=== PATIENT | female | born 1935 | race Hispanic/Latino ===

== ENCOUNTER 2016-10-20 13:49 | Emergency (ER) | payer MEDICARE ==
[2016-10-20 13:49] VITALS: BMI 27.2
[2016-10-20 14:19] VITALS: BP 136/67; PULSE 84; RESP 16; TEMP 97.9; O2SAT 100
[2016-10-20] MEDS ORDERED: Sodium Chloride 0.9% 1,000 ML IV STA (14:49)
--- NOTE | 2016-10-20 15:42 | ED PDOC ---
HPI: Abdomen Time Seen by Provider: 10/20/16 14:43 Chief Complaint (Nursing): Dizziness/Lightheaded Chief Complaint (Provider): Dizziness/Lightheaded History Per: Patient History/Exam Limitations: no limitations Onset/Duration Of Symptoms: Days Current Symptoms Are (Timing): Still Present Severity: Mild Location Of Pain/Discomfort: RUQ Quality Of Discomfort: "Pain" Associated Symptoms: Nausea. denies: Fever, Vomiting Exacerbating Factors: None Alleviating Factors: None Additional Complaint(s): Patient is a 80 year old female who presents to ED for evaluation of dizziness and RUQ pain for 3 days. Patient notes dizziness is described as a lightheaded feelings, denies headache, neck pain or ear pain. Patient notes abdominal pain is associated with nausea, with similar pain in the past, no known diagnosis. Denies chest pain, SOB, vomiting, diarrhea or back pain. Past Medical History Reviewed: Historical Data, Nursing Documentation, Vital Signs Vital Signs: Last Vital Signs Temp 97.9 F 10/20/16 14:16 Pulse 84 10/20/16 14:16 Resp 16 10/20/16 14:16 BP 136/67 10/20/16 14:16 Pulse Ox 100 10/20/16 15:51 - Medical History PMH: Arthritis, Depression, Diabetes, Gastritis, HTN, Hypercholesterolemia Denies: Chronic Kidney Disease - Surgical History Surgical History: No Surg Hx - Family History Family History: States: Hypertension - Living Arrangements Living Arrangements: With Family - Home Medications Home Medications: Ambulatory Orders Medication Instructions Recorded Atorvastatin [Lipitor] 20 mg PO DAILY 10/20/16 Ergocalciferol (Vitamin D2) 50,000 unit PO TH 10/20/16 [Vitamin D2] Folic Acid [Folic Acid] 1 mg PO DAILY 10/20/16 [id number] Ethyl Esters 1 GM 2 gm PO BID 10/20/16 [Lovaza] Ondansetron [Zofran] 4 mg PO Q8H #12 tab 10/20/16 Pantoprazole Sodium [Protonix] 40 mg PO DAILY 10/20/16 Pioglitazone [Actos] 30 mg PO DAILY 10/20/16 amLODIPine [Norvasc] 5 mg PO DAILY 10/20/16 buPROPion XL [Wellbutrin XL] 300 mg PO DAILY 10/20/16 busPIRone [Buspar] 5 mg PO BID 10/20/16 traZODone [Desyrel] 50 mg PO HS 10/20/16 - Allergies Allergies/Adverse Reactions: Allergies Allergy/AdvReac Type Severity Reaction Status Date / Time No Known Allergies Allergy Verified 10/20/16 14:16 Review of Systems ROS Statement: Except As Marked, All Systems Reviewed And Found Negative Constitutional: Negative for: Fever, Chills, Weakness Eyes: Negative for: Vision Change ENT: Negative for: Ear Pain Cardiovascular: Negative for: Chest Pain, Palpitations Respiratory: Negative for: Shortness of Breath Gastrointestinal: Positive for: Nausea, Abdominal Pain. Negative for: Vomiting Musculoskeletal: Negative for: Neck Pain, Back Pain Neurological: Positive for: Dizziness. Negative for: Weakness, Numbness, Headache Physical Exam - Reviewed Nursing Documentation Reviewed: Yes Vital Signs Reviewed: Yes - Physical Exam Appears: Positive for: Non-toxic, No Acute Distress Skin: Positive for: Normal Color, Warm Eye Exam: Positive for: Normal appearance Neck: Positive for: Normal, Painless ROM Cardiovascular/Chest: Positive for: Regular Rate, Rhythm. Negative for: Murmur Respiratory: Positive for: Normal Breath Sounds. Negative for: Respiratory Distress Gastrointestinal/Abdominal: Positive for: Tenderness ((+) Epigastric tenderness (-) RUQ (-) murphys sign ). Negative for: Distended, Guarding, Rebound Back: Positive for: Normal Inspection Extremity: Positive for: Normal ROM. Negative for: Pedal Edema Neurologic/Psych: Positive for: Alert, Oriented - Laboratory Results Result Diagrams: 10/20/16 18:20 10/20/16 16:25 - ECG O2 Sat by Pulse Oximetry: 100 Medical Decision Making Medical Decision Making: Time: 1445 Initial impression: Possible gall stones vs cholecystitis vs gastritis Initial plan: -- EKG -- CMP -- Lipase -- CBC -- CXR -- NSF and Zofran -- U/A -- U/S 1900: Pt. is feeling much better, abdominal pain resolved and no longer dizzy, told pt. to f/u w/ GI Dr. Elizalde. Told to return to ER for worsening abdominal pain, vomiting, fevers, or other concerning symptoms. Scribe Attestation: Documented by Louise Mcnair acting as a scribe for Kuldip Reyes MD MD Scribe Attestation: All medical record entries made by the Scribe were at my direction and personally dictated by me. I have reviewed the chart and agree that the record accurately reflects my personal performance of the history, physical exam, medical decision making, and the department course for this patient. I have also personally directed, reviewed, and agree with the discharge instructions and disposition. Disposition - Clinical Impression Clinical Impression: Dizziness, Dehydration - Disposition Referrals: Florentino Elizalde MD, PhD [Staff Provider] - Disposition: Routine/Home Disposition Time: 19:02 Condition: STABLE Prescriptions: Ondansetron [Zofran] 4 mg PO Q8H #12 tab Instructions: Dehydration (ED), Dizziness (ED) Print Language: SRI LANKAN
--- NOTE | 2016-10-20 16:30 | RAD ---
HISTORY: Abdominal pain COMPARISON: No prior. FINDINGS: LUNGS: The lungs are clear. No focal consolidation. PLEURA: No significant pleural effusion identified, no pneumothorax apparent. CARDIOVASCULAR: The heart is normal in size. Atherosclerotic aortic arch calcifications are present. . OSSEOUS STRUCTURES: No significant abnormalities. VISUALIZED UPPER ABDOMEN: Normal. OTHER FINDINGS: None. IMPRESSION: No active pulmonary disease.
[2016-10-20 16:59] LABS: ALB/GLOB RATIO 1.2 (1.0-2.1); ALKALINE PHOSPHATASE 98 U/L (38-126); ALT/SGPT 21 U/L (9-52); AST/SGOT 28 U/L (14-36); BILIRUBIN,TOTAL 0.5 mg/dl (0.2-1.3); BLOOD UREA NITROGEN 14 mg/dl (7-17); CALCIUM 9.2 mg/dL (8.4-10.2); CARBON DIOXIDE 25 mmol/L (22-30); CHLORIDE 107 mmol/L (98-107); GFR AFRICAN-AMERICAN > 60; GLUCOSE,RANDOM 79 mg/dL (65-105); LIPASE 119 U/L (23-300); SODIUM 142 mmol/l (132-148); TOTAL PROTEIN 7.4 G/DL (6.3-8.2)
[2016-10-20 17:22] LABS: RBC URINE 1 /hpf (0-3); URINE BACTERIA RARE (<OCC); URINE BILIRUBIN NEGATIVE (NEGATIVE); URINE BLOOD NEGATIVE (NEGATIVE); URINE COLOR YELLOW (YELLOW); URINE GLUCOSE (UA) NEG (Normal); URINE KETONE NEGATIVE (NEGATIVE); URINE LEUKOCYTE ESTERASE NEG Leu/uL (Negative); URINE PROTEIN NEGATIVE (NEGATIVE); URINE UROBILINOGEN 0.2-1.0 mg/dL (0.2-1.0); WBC URINE 2 /hpf (0-5)
[2016-10-20 18:25] LABS: BASO % 0.7 % (0.0-2.0); EOS # 0.1 K/uL (0.0-0.7); EOS % 2.1 % (0.0-4.0); HEMATOCRIT 39.7 % (34.0-47.0); LYMPH % 16.9 % (20.0-40.0); MEAN CORPUSCULAR HEMOGLOBIN 26.6 pg (27.0-31.0); MEAN CORPUSCULAR HGB CONC 31.7 g/dL (33.0-37.0); MEAN PLATELET VOLUME 8.7 fl (7.2-11.7); MONO # 0.5 K/uL (0.0-0.8); NEUT # 4.2 K/uL (1.8-7.0); NEUT % 71.3 % (50.0-75.0); RED CELL DISTRIBUTION WIDTH 15.4 % (11.5-14.5); WHITE BLOOD COUNT 5.9 K/uL (4.8-10.8)
--- NOTE | 2016-10-20 18:38 | US ---
HISTORY: RUQ pain adn nausea COMPARISON: 02/27/2016 TECHNIQUE: Sonographic evaluation of the right upper quadrant of the abdomen. FINDINGS: LIVER: Measures 11.6 cm in length. Patent portal vein. Portal venous flow: Hepatopetal. Unremarkeable echogenicity of the liver parenchyma. Indeterminate mass 8 x 11 mm. Finding likely represents a cyst. There are however internal echoes suspected. This is found in the left hepatic lobe GALLBLADDER: Unremarkable. No gallstones. COMMON BILE DUCT: Measures 2.3 mm. No stones. No dilatation. PANCREAS: Unremarkable as visualized. No mass. No ductal dilatation. RIGHT KIDNEY: Measures 4.5 x 10.1 cm in length. Normal echogenicity. No calculus, mass, or hydronephrosis.Incidental finding(s): Simple cyst lower pole right kidney 2.8 x 3.1 cm. Finding identified previously. AORTA: No aneurysmal dilatation. IVC: Unremarkable. OTHER FINDINGS: None . IMPRESSION: No acute findings related to/accounting for the clinical presentation. Probable benign findings/ cyst left hepatic lobe. Elective followup recommended.
--- NOTE | 2016-10-21 08:33 | CARD ---
APPROVED REPORT EKG Measurement Heart [id number] <Conclusion> Sinus rhythm with premature atrial complexes Otherwise normal ECG
== END 2016-10-20 19:16 | disposition home or self-care (01) ==
LOC: H.ER 13:49
DX: R42 Dizziness and giddiness (principal); R11.0 Nausea; R10.11 Right upper quadrant pain; E86.0 Dehydration; E11.9 Type 2 diabetes mellitus without complications; E78.00 Pure hypercholesterolemia, unspecified; I10 Essential (primary) hypertension; I49.1 Atrial premature depolarization
CPT/HCPCS: 71010; 76705; 80053; 81003; 82948; 83690; 85025; 93005; 96361; 96374; 99284; J2405; J7040

== ENCOUNTER 2016-10-22 12:33 | Emergency (ER) | payer MEDICARE ==
[2016-10-22 12:33] VITALS: BMI 27.2
[2016-10-22 12:45] VITALS: O2SAT 99
--- NOTE | 2016-10-22 12:53 | ED PDOC ---
Addendum entered and electronically signed by Danny St PA 10/24/16 12:37: Addendum Addendum: 10/24/16 12:36 Urine culture: + E.Coli. Not on Abx. Spoke with patient using production support analyst [id number] and informed of results and plan. Macrobid Rx called in to [place] [facility]. Original Note: HPI: General Adult Time Seen by Provider: 10/22/16 12:51 Chief Complaint (Nursing): Back Pain Chief Complaint (Provider): abdominal pain, back pain History Per: Patient, Family (patient's daughter at bedside. ) Additional Complaint(s): 80 year old female presents to ED with LLQ abdominal pain and low back pain that started yesterday. Patient was seen in ED 2 days ago for right upper quadrant abdominal pain which has now resolved. Ultrasound of abdomen was done at that time which was negative. Patient presents today with lower abdominal pain, nausea and decreased appetite. Patient also reports 1 episode of nonbloody , watery diarrhea this morning. Patient denies fever or chills, denies any dysuria, hematuria, vaginal bleeding or vaginal discharge. She was able to eat breakfast but has a decreased appetite this morning. Patient denies any associated headache, vision changes, chest pain, shortness of breath or dyspnea on exertion. No recent travel. Past Medical History Reviewed: Historical Data, Nursing Documentation, Vital Signs Vital Signs: Last Vital Signs Temp 98.1 F 10/22/16 12:44 Pulse 91 H 10/22/16 12:44 Resp 18 10/22/16 12:44 BP 142/74 10/22/16 12:44 Pulse Ox 99 10/22/16 15:38 - Medical History PMH: Arthritis, Depression, Diabetes, Gastritis, HTN, Hypercholesterolemia - Surgical History Other surgeries: left knee surgery, right shoulder surgery, tubal ligation - Family History Family History: States: Hypertension - Living Arrangements Living Arrangements: With Family - Social History Current smoker - smoking cessation education provided: No Alcohol: None Drugs: Denies - Home Medications Home Medications: Ambulatory Orders Medication Instructions Recorded Atorvastatin [Lipitor] 20 mg PO DAILY 10/20/16 Ergocalciferol (Vitamin D2) 50,000 unit PO TH 10/20/16 [Vitamin D2] Folic Acid [Folic Acid] 1 mg PO DAILY 10/20/16 [id number] Ethyl Esters 1 GM 2 gm PO BID 10/20/16 [Lovaza] Ondansetron [Zofran] 4 mg PO Q8H #12 tab 10/20/16 Pantoprazole Sodium [Protonix] 40 mg PO DAILY 10/20/16 Pioglitazone [Actos] 30 mg PO DAILY 10/20/16 amLODIPine [Norvasc] 5 mg PO DAILY 10/20/16 buPROPion XL [Wellbutrin XL] 300 mg PO DAILY 10/20/16 busPIRone [Buspar] 5 mg PO BID 10/20/16 traZODone [Desyrel] 50 mg PO HS 10/20/16 Dicyclomine [Bentyl] 10 mg PO QID PRN #20 cap 10/22/16 - Allergies Allergies/Adverse Reactions: Allergies Allergy/AdvReac Type Severity Reaction Status Date / Time No Known Allergies Allergy Verified 10/20/16 14:16 Review of Systems ROS Statement: Except As Marked, All Systems Reviewed And Found Negative Constitutional: Negative for: Fever, Chills Cardiovascular: Negative for: Chest Pain, Palpitations Respiratory: Negative for: Cough, Shortness of Breath Gastrointestinal: Positive for: Nausea, Abdominal Pain, Diarrhea (x 1 today only ). Negative for: Vomiting, Constipation, Melena, Hematochezia, Hematemesis, Rectal Pain Genitourinary Female: Negative for: Dysuria, Frequency, Incontinence, Hematuria , Vaginal Discharge, Vaginal Bleeding Physical Exam - Reviewed Nursing Documentation Reviewed: Yes Vital Signs Reviewed: Yes - Physical Exam Appears: Positive for: Well, Non-toxic, No Acute Distress Head Exam: Positive for: ATRAUMATIC, NORMAL INSPECTION Skin: Negative for: Rash Eye Exam: Positive for: Normal appearance, EOMI, PERRL Cardiovascular/Chest: Positive for: Regular Rate, Rhythm Respiratory: Positive for: Normal Breath Sounds. Negative for: Respiratory Distress Gastrointestinal/Abdominal: Positive for: Soft, Other (Mild tenderness to right lower quadrant and left lower quadrant with no rebound or guarding, no distention, normoactive bowel sounds in all 4 quadrants). Negative for: Tenderness Back: Positive for: Vertebral Tenderness (lower lumbar region, no step off), Other (negative bilateral straight leg raise). Negative for: L CVA Tenderness, R CVA Tenderness Extremity: Positive for: Normal ROM. Negative for: Pedal Edema Neurologic/Psych: Positive for: Alert, Oriented - Laboratory Results Result Diagrams: 10/22/16 13:50 10/22/16 13:50 - ECG Interpretation Of Abn EKG: NSR 88 bpm, no acute finding, reviewed by PA and ED attending O2 Sat by Pulse Oximetry: 99 Pulse Ox Interpretation: Normal - Other Rad bedside chest X-Ray: Interpreted by Me, Viewed By Me X-Ray Interpretation: no acute finding, no interval change CT abd and pelvis with IV contrast X-Ray: Read By Radiologist X-Ray Interpretation: see below Medical Decision Making Medical Decision Makin80 year old with lower abdominal pain. Plan: CBC CMP Trop UA IVF EKG IV toradol for pain CT abd and pelvis with IV contrast CT: IMPRESSION: Scattered hepatic and renal cysts. Colonic diverticulosis. No significant interval change since prior exam. Patient is aware of all diagnostic testing results, all questions answered. Patient states she feels better. She was able to tolerate tray of food with no further emesis. Patient states dizziness has resolved. Patient already has Zofran prescription at home, prescription also given for Bentyl. Advised fluids, rest and follow up with PMD in 1-2 days. Disposition - Clinical Impression Clinical Impression: Abdominal pain - Patient ED Disposition Is Patient to be Admitted: No Counseled Patient/Family Regarding: Studies Performed, Diagnosis, Need For Followup - Disposition Referrals: Maxi Judd MD [Staff Provider] - Disposition: Routine/Home Disposition Time: 16:59 Condition: STABLE Additional Instructions: Follow bland diet and drink plenty of fluids. Take Tylenol for pain. Take Zofran as needed for nausea and vomiting, which was prescribed to you on your last visit. Take new rx meds as directed. Follow up Monday with primary care doctor. Prescriptions: Dicyclomine [Bentyl] 10 mg PO QID PRN #20 cap PRN Reason: Gi Distress Instructions: Abdominal Pain (ED) Results - Lab Results Lab Results: 10/22/16 10/22/16 10/22/16 14:00 13:50 13:50 WBC 6.2 RBC 4.65 Hgb 12.6 Hct 38.3 MCV 82.3 MCH 27.1 MCHC 32.9 L RDW 15.6 H Plt Count 207 MPV 9.1 Neut % (Auto) 76.2 H Lymph % (Auto) 12.5 L Whiteside % (Auto) 8.5 Eos % (Auto) 2.1 Baso % (Auto) 0.7 Neut # 4.7 Lymph # 0.8 L Whiteside # 0.5 Eos # 0.1 Baso # 0.0 Sodium 142 Potassium 3.9 Chloride 107 Carbon Dioxide 26 Anion Gap 14 BUN 12 Creatinine 0.8 Est GFR ( Amer) > 60 Est GFR (Non-Af Amer) > 60 Random Glucose 106 H Calcium 9.2 Total Bilirubin 0.5 AST 24 ALT 25 Alkaline Phosphatase 81 Troponin I < 0.0120 Total Protein 7.5 Albumin 4.1 Globulin 3.4 Albumin/Globulin Ratio 1.2 Urine Color Yellow Urine Clarity Clear Urine pH 7.0 Ur Specific Burgess 1.009 Urine Protein Negative Urine Glucose (UA) Neg Urine Ketones Negative Urine Blood Negative Urine Nitrate Negative Urine Bilirubin Negative Urine Urobilinogen 0.2-1.0 Ur Leukocyte Esterase Neg Urine RBC (Auto) 1 Urine Microscopic WBC < 1 Ur Squamous Epith Cells 2
[2016-10-22 13:56] LABS: BASO % 0.7 % (0.0-2.0); EOS # 0.1 K/uL (0.0-0.7); EOS % 2.1 % (0.0-4.0); HEMATOCRIT 38.3 % (34.0-47.0); LYMPH # 0.8 K/uL (1.0-4.3); LYMPH % 12.5 % (20.0-40.0); MEAN CELL VOLUME 82.3 fl (81.0-99.0); MEAN CORPUSCULAR HEMOGLOBIN 27.1 pg (27.0-31.0); MEAN CORPUSCULAR HGB CONC 32.9 g/dL (33.0-37.0); MEAN PLATELET VOLUME 9.1 fl (7.2-11.7); MONO # 0.5 K/uL (0.0-0.8); MONO % 8.5 % (0.0-10.0); NEUT # 4.7 K/uL (1.8-7.0); NEUT % 76.2 % (50.0-75.0); RED CELL DISTRIBUTION WIDTH 15.6 % (11.5-14.5); WHITE BLOOD COUNT 6.2 K/uL (4.8-10.8)
[2016-10-22 14:05] LABS: ALB/GLOB RATIO 1.2 (1.0-2.1); ALKALINE PHOSPHATASE 81 U/L (38-126); ALT/SGPT 25 U/L (9-52); AST/SGOT 24 U/L (14-36); BILIRUBIN,TOTAL 0.5 mg/dl (0.2-1.3); BLOOD UREA NITROGEN 12 mg/dl (7-17); CALCIUM 9.2 mg/dL (8.4-10.2); CARBON DIOXIDE 26 mmol/L (22-30); CHLORIDE 107 mmol/L (98-107); GFR AFRICAN-AMERICAN > 60; GLUCOSE,RANDOM 106 mg/dL (65-105); POTASSIUM 3.9 MMOL/L (3.6-5.0); SODIUM 142 mmol/l (132-148); TOTAL PROTEIN 7.5 G/DL (6.3-8.2)
[2016-10-22 14:18] LABS: RBC URINE 1 /hpf (0-3); URINE BILIRUBIN NEGATIVE (NEGATIVE); URINE BLOOD NEGATIVE (NEGATIVE); URINE COLOR YELLOW (YELLOW); URINE GLUCOSE (UA) NEG (Normal); URINE KETONE NEGATIVE (NEGATIVE); URINE LEUKOCYTE ESTERASE NEG Leu/uL (Negative); URINE PROTEIN NEGATIVE (NEGATIVE); URINE UROBILINOGEN 0.2-1.0 mg/dL (0.2-1.0); WBC URINE < 1 /hpf (0-5)
[2016-10-22] MEDS ORDERED: Sodium Chloride 0.9% 50 ML IV ONE (15:49)
[2016-10-22] MEDS ORDERED: Iohexol 300 100 ML IJ ONE (15:49)
--- NOTE | 2016-10-22 16:41 | CT ---
PROCEDURE: CT Abdomen and Pelvis with contrast HISTORY: LLQ abd pain, nausea, diarrhea COMPARISON: 12/04/2014 TECHNIQUE: Contrast dose: 100 cc of Omnipaque Radiation dose: Total exam DLP = 804 mGy-cm. This CT exam was performed using one or more of the following dose reduction techniques: Automated exposure control, adjustment of the mA and/or kV according to patient size, and/or use of iterative reconstruction technique. FINDINGS: LOWER THORAX: Unremarkable. LIVER: 9 millimeter left hepatic cyst. GALLBLADDER AND BILE DUCTS: Unremarkable. PANCREAS: Unremarkable. No gross lesion or ductal dilatation. SPLEEN: Unremarkable. ADRENALS: Unremarkable. No mass. KIDNEYS AND URETERS: Bilateral renal cysts measuring up to 3.8 centimeters. Stable hyperdense cyst in the lower pole left kidney measuring 1.6 centimeters. VASCULATURE: Unremarkable. No aortic aneurysm. BOWEL: Colonic diverticulosis.. No obstruction. No gross mural thickening. APPENDIX: Normal appendix. PERITONEUM: Unremarkable. No free fluid. No free air. LYMPH NODES: Unremarkable. No enlarged lymph nodes. BLADDER: Unremarkable. REPRODUCTIVE: Unremarkable. BONES: No acute fracture. OTHER FINDINGS: None. IMPRESSION: Scattered hepatic and renal cysts. Colonic diverticulosis. No significant interval change since prior exam.
[2016-10-22 17:39] VITALS: BP 132/70; PULSE 81; RESP 16; TEMP 98
--- NOTE | 2016-10-23 10:05 | RAD ---
HISTORY: clearance COMPARISON: FINDINGS: LUNGS: No active pulmonary disease. PLEURA: No significant pleural effusion identified, no pneumothorax apparent. CARDIOVASCULAR: Normal. OSSEOUS STRUCTURES: No significant abnormalities. VISUALIZED UPPER ABDOMEN: Normal. OTHER FINDINGS: None. IMPRESSION: No active disease.
--- NOTE | 2016-10-23 10:24 | CARD ---
APPROVED REPORT EKG Measurement Heart [id number] [place] [id number] [id number] <Conclusion> Normal sinus rhythm Normal ECG
== END 2016-10-22 17:39 | disposition home or self-care (01) ==
LOC: H.ER 12:33
DX: R10.9 Unspecified abdominal pain (principal); I10 Essential (primary) hypertension; E78.00 Pure hypercholesterolemia, unspecified; E11.9 Type 2 diabetes mellitus without complications; Z87.891 Personal history of nicotine dependence
CPT/HCPCS: 71010; 74177; 80053; 81003; 84484; 85025; 87086; 93005; 96374; 99282; J1885; Q9967

== ENCOUNTER 2016-11-26 11:16 | Emergency (ER) | payer MEDICARE ==
[2016-11-26 11:16] VITALS: BMI 27.2
[2016-11-26 11:23] VITALS: TEMP 98.4
--- NOTE | 2016-11-26 11:45 | ED PDOC ---
HPI: Headache Time Seen by Provider: 11/26/16 11:30 Chief Complaint (Nursing): Headache Chief Complaint (Provider): Headache History Per: Patient History/Exam Limitations: no limitations Onset/Duration Of Symptoms: Days Current Symptoms Are (Timing): Still Present Severity: Moderate Pain Scale Rating Of: 7 Quality: "Pain" Preceeding Symptoms: None Additional History Per: Patient Additional Complaint(s): Pt is an 81yo female, PMHx of HTN, DM, hypercholesterolemia, depression who presents to the ED for evaluation of headache (mostly on the top of her head) with associated dizziness for the past 3 days. Pt also reports lower back pain with radiation to her abdomen. She reports her headache is currently present. She states she has had similar symptoms in the past and was seen in this facility 2x and "they found nothing". She currently denies any falls, trauma or injuries as well as a fever. She currently offers no additional medical complaints. No trauma. No fever. Pt states her pain is a "7". PMD: Dr. Maxi Judd Past Medical History Reviewed: Historical Data, Nursing Documentation, Vital Signs Vital Signs: Last Vital Signs Temp 98.4 F 11/26/16 11:21 Pulse 108 H 11/26/16 11:21 Resp 20 11/26/16 11:21 BP 132/82 11/26/16 11:21 Pulse Ox 98 11/26/16 11:21 - Medical History PMH: Arthritis, Depression, Diabetes, Gastritis, HTN, Hypercholesterolemia Denies: Chronic Kidney Disease - Surgical History Surgical History: No Surg Hx - Family History Family History: States: Hypertension - Living Arrangements Living Arrangements: With Family - Home Medications Home Medications: Ambulatory Orders Medication Instructions Recorded Atorvastatin [Lipitor] 20 mg PO DAILY 10/20/16 Ergocalciferol (Vitamin D2) 50,000 unit PO TH 10/20/16 [Vitamin D2] Folic Acid [Folic Acid] 1 mg PO DAILY 10/20/16 Twjkx-2-Apef Ethyl Esters 1 GM 2 gm PO BID 10/20/16 [Lovaza] Ondansetron [Zofran] 4 mg PO Q8H #12 tab 10/20/16 Pantoprazole Sodium [Protonix] 40 mg PO DAILY 10/20/16 Pioglitazone [Actos] 30 mg PO DAILY 10/20/16 amLODIPine [Norvasc] 5 mg PO DAILY 10/20/16 buPROPion XL [Wellbutrin XL] 300 mg PO DAILY 10/20/16 busPIRone [Buspar] 5 mg PO BID 10/20/16 traZODone [Desyrel] 50 mg PO HS 10/20/16 Dicyclomine [Bentyl] 10 mg PO QID PRN #20 cap 10/22/16 Cephalexin [cephalexin] 1 tab PO BID #14 cap 11/26/16 - Allergies Allergies/Adverse Reactions: Allergies Allergy/AdvReac Type Severity Reaction Status Date / Time No Known Allergies Allergy Verified 11/26/16 11:21 Review of Systems ROS Statement: Except As Marked, All Systems Reviewed And Found Negative Constitutional: Negative for: Fever Cardiovascular: Negative for: Chest Pain Respiratory: Negative for: Shortness of Breath Gastrointestinal: Negative for: Vomiting Musculoskeletal: Positive for: Back Pain Neurological: Positive for: Headache, Dizziness Physical Exam - Reviewed Nursing Documentation Reviewed: Yes Vital Signs Reviewed: Yes - Physical Exam Appears: Positive for: Well, Non-toxic, No Acute Distress Head Exam: Positive for: ATRAUMATIC, NORMAL INSPECTION, NORMOCEPHALIC Skin: Positive for: Normal Color, Warm, Dry Eye Exam: Positive for: Normal appearance ENT: Positive for: Normal ENT Inspection Neck: Positive for: Normal Cardiovascular/Chest: Positive for: Regular Rate, Rhythm Respiratory: Positive for: Normal Breath Sounds. Negative for: Rales, Rhonchi, Wheezing Gastrointestinal/Abdominal: Positive for: Normal Exam, Bowel Sounds, Soft. Negative for: Tenderness Back: Positive for: Other (minor paralumbar tenderness in L5 area) Extremity: Positive for: Normal ROM Lymphatic: Positive for: Deferred Neurologic/Psych: Positive for: Alert. Negative for: Motor/Sensory Deficits - Laboratory Results Result Diagrams: 11/26/16 11:20 11/26/16 11:20 - ECG O2 Sat by Pulse Oximetry: 98 (RA) Pulse Ox Interpretation: Normal Medical Decision Making Medical Decision Making: Time: 1145 Impression: Headache and Low Back Pain with dizziness Differential dx includes but is not limited to: lumbar strain, UTI, electrolyte d/o, Plan: -- CT Head w/o contrast -- CMP -- CBC -- Urinalysis -- Tylenol 975 mg PO Progress Note(s): 1:21 PM - Family has now arrived. Family is concerned for depression because pt won't leave house. Family also states pt frequently has medical complaints and they never find anything wrong. Family states pt w/ hx of depression and suicide attempt and wonder if pt is becoming depressed again. Will get psych consult. 2:32 PM -- Pt is being seen now by our hair worker. 2:57 PM -- Pt seen by crisis. No acute psych issues. Will f/u with Fermin Renae. CT Head IMPRESSION: No CT evidence of acute intracranial hemorrhage or acute territorial infarct. Acute infarction may be CT occult within first 24 hours. If a focal deficit persists, consider followup CT or MRI for further evaluation. Scribe Attestation: Documented by Griselda Lloyd acting as a scribe for Harsha Arce DO. Provider Attestation: All medical record entries made by the Scribe were at my direction and personally dictated by me. I have reviewed the chart and agree that the record accurately reflects my personal performance of the history, physical exam, medical decision making, and the department course for this patient. I have also personally directed, reviewed, and agree with the discharge instructions and disposition. Disposition - Clinical Impression Clinical Impression: UTI (urinary tract infection) - Patient ED Disposition Is Patient to be Admitted: No - Disposition Referrals: Fermin Wilson APN [Staff Provider] - Maxi Judd MD [Staff Provider] - Disposition: Routine/Home Disposition Time: 14:55 Condition: FAIR Additional Instructions: Ms. Corey, thank you for letting us take care of you today. Return to the ER if your symptoms worsen, or if any problems. Take the medication listed below as prescribed. You should follow up with Fermin MARTIN and with Dr. Judd next week for a re-evaluation. Prescriptions: Cephalexin [cephalexin] 1 tab PO BID #14 cap Instructions: Urinary Tract Infection in Women (ED) Forms: [employer] (Moldovan) Print Language: AUSTRIAN - POA Present On Arrival: None
--- NOTE | 2016-11-26 12:28 | CT ---
PROCEDURE: CT HEAD WITHOUT CONTRAST. HISTORY: pt c/o dizzy and headache COMPARISON: 05/28/2016 TECHNIQUE: Axial computed tomography images were obtained through the head/brain without intravenous contrast. Radiation dose: Total exam DLP = 845.07 mGy-cm. This CT exam was performed using one or more of the following dose reduction techniques: Automated exposure control, adjustment of the mA and/or kV according to patient size, and/or use of iterative reconstruction technique. FINDINGS: HEMORRHAGE: No intracranial hemorrhage. BRAIN: No mass effect or edema. No CT evidence of acute territorial infarct. Patchy and confluent hypodensities throughout the bilateral cerebral hemispheric white matter are most likely from chronic small vessel ischemic changes. Mild volume loss. VENTRICLES: Unremarkable. No hydrocephalus. CALVARIUM: Unremarkable. PARANASAL SINUSES: Bubbly soft tissue density with layering fluid in the sphenoid sinuses. MASTOID AIR CELLS: Under pneumatization of the left mastoid air cells. OTHER FINDINGS: None. IMPRESSION: No CT evidence of acute intracranial hemorrhage or acute territorial infarct. Acute infarction may be CT occult within first 24 hours. If a focal deficit persists, consider followup CT or MRI for further evaluation. Other findings as above.
[2016-11-26 12:56] LABS: BASO # 0.1 K/uL (0.0-0.2); BASO % 1.6 % (0.0-2.0); EOS # 0.1 K/uL (0.0-0.7); EOS % 1.9 % (0.0-4.0); HEMATOCRIT 39.4 % (34.0-47.0); LYMPH # 0.8 K/uL (1.0-4.3); LYMPH % 18.7 % (20.0-40.0); MEAN CELL VOLUME 85.1 fl (81.0-99.0); MEAN CORPUSCULAR HEMOGLOBIN 27.3 pg (27.0-31.0); MEAN CORPUSCULAR HGB CONC 32.1 g/dL (33.0-37.0); MEAN PLATELET VOLUME 8.8 fl (7.2-11.7); MONO # 0.4 K/uL (0.0-0.8); MONO % 8.6 % (0.0-10.0); NEUT # 3.1 K/uL (1.8-7.0); NEUT % 69.2 % (50.0-75.0); NRBC % 0.1 % (0.0-0.0); RED CELL DISTRIBUTION WIDTH 15.7 % (11.5-14.5); WHITE BLOOD COUNT 4.4 K/uL (4.8-10.8)
[2016-11-26 12:57] LABS: ALB/GLOB RATIO 1.5 (1.0-2.1); ALKALINE PHOSPHATASE 88 U/L (38-126); ALT/SGPT 33 U/L (9-52); AST/SGOT 26 U/L (14-36); BILIRUBIN,TOTAL 0.6 mg/dl (0.2-1.3); BLOOD UREA NITROGEN 16 mg/dl (7-17); CALCIUM 9.2 mg/dL (8.4-10.2); CARBON DIOXIDE 26 mmol/L (22-30); CHLORIDE 103 mmol/L (98-107); GFR AFRICAN-AMERICAN > 60; GLUCOSE,RANDOM 104 mg/dL (65-105); POTASSIUM 4.5 MMOL/L (3.6-5.0); SODIUM 139 mmol/l (132-148); TOTAL PROTEIN 7.7 G/DL (6.3-8.2)
[2016-11-26 13:21] LABS: RBC URINE 3 /hpf (0-3); URINE BACTERIA OCC (<OCC); URINE BILIRUBIN NEGATIVE (NEGATIVE); URINE BLOOD NEGATIVE (NEGATIVE); URINE COLOR YELLOW (YELLOW); URINE GLUCOSE (UA) NEG (Normal); URINE KETONE NEGATIVE (NEGATIVE); URINE LEUKOCYTE ESTERASE TRACE Leu/uL (Negative); URINE PROTEIN NEGATIVE (NEGATIVE); URINE UROBILINOGEN 0.2-1.0 mg/dL (0.2-1.0); WBC URINE 2 /hpf (0-5)
[2016-11-26 15:08] VITALS: BP 143/83; PULSE 87; RESP 16; O2SAT 99
--- NOTE | 2016-11-27 14:46 | CARD ---
APPROVED REPORT EKG Measurement Heart [id number] [place] 138P70 [id number] <Conclusion> Normal sinus rhythm Normal ECG
== END 2016-11-26 15:06 | disposition home or self-care (01) ==
LOC: H.ER 11:16
DX: R51 Headache (principal); R42 Dizziness and giddiness; M54.5 Low back pain; I10 Essential (primary) hypertension; E11.9 Type 2 diabetes mellitus without complications

== ENCOUNTER 2018-04-08 10:34 | Emergency (ER) | payer MEDICARE ==
[2018-04-08 10:38] VITALS: BMI 30.9
[2018-04-08 10:41] VITALS: BP 147/77; PULSE 73; RESP 16; TEMP 98.6; O2SAT 98
[2018-04-08] MEDS ORDERED: Sodium Chloride 0.9% 1,000 ML IV STA (11:33)
[2018-04-08] MEDS ORDERED: Magnesium Citrate Oral SOL (300 ml) PO STA (11:34)
[2018-04-08] MEDS ORDERED: Naproxen 500 MG TAB PO ONE (12:59)
[2018-04-08] MEDS ORDERED: Magnesium Citrate Oral SOL (300 ml) ONE (12:59)
[2018-04-08 13:09] LABS: BASO % 0.5 % (0.0-2.0); EOS # 0.1 K/uL (0.0-0.7); EOS % 1.6 % (0.0-4.0); HEMOGLOBIN 13.4 g/dL (12.0-16.0); LYMPH # 0.9 K/uL (1.0-4.3); LYMPH % 16.9 % (20.0-40.0); MEAN CELL VOLUME 88.8 fl (81.0-99.0); MEAN CORPUSCULAR HEMOGLOBIN 28.6 pg (27.0-31.0); MEAN CORPUSCULAR HGB CONC 32.2 g/dL (33.0-37.0); MEAN PLATELET VOLUME 8.9 fl (7.2-11.7); MONO # 0.5 K/uL (0.0-0.8); MONO % 9.7 % (0.0-10.0); NEUT # 3.9 K/uL (1.8-7.0); NEUT % 71.3 % (50.0-75.0); RBC 4.69 Mil/uL (3.80-5.20); RED CELL DISTRIBUTION WIDTH 14.5 % (11.5-14.5); WHITE BLOOD COUNT 5.5 K/uL (4.8-10.8)
[2018-04-08 13:21] LABS: ALB/GLOB RATIO 1.2 (1.0-2.1); ALBUMIN 3.8 g/dL (3.5-5.0); ALT/SGPT 56 U/L (9-52); AST/SGOT 30 U/L (14-36); BLOOD UREA NITROGEN 17 mg/dl (7-17); CALCIUM 8.8 mg/dL (8.4-10.2); GFR NON-AFRICAN AMERICAN > 60
--- NOTE | 2018-04-08 13:25 | ED PDOC ---
HPI: Headache Time Seen by Provider: 04/08/18 11:21 Chief Complaint (Nursing): Headache Chief Complaint (Provider): Headache History Per: Patient History/Exam Limitations: no limitations Onset/Duration Of Symptoms: Days (several days) Additional Complaint(s): Odilia Corey, an 82 year old female with past medical history of glaucoma, presents to the emergency room with a right sided frontal headache with pain behind the eye associated with mild nausea onset several days. Upon further evaluation, patient reports constipation for several days and notes drinking less water. She states she is supposed to see her eye dr on but is trying to get an earlier appointment. Patient denies fever, trauma, neck pain or vomiting. No further medical complaints. Allergies: none Past Medical History Reviewed: Historical Data, Nursing Documentation, Vital Signs Vital Signs: Last Vital Signs Temp 98.6 F 04/08/18 10:38 Pulse 73 04/08/18 10:38 Resp 16 04/08/18 10:38 BP 147/77 04/08/18 10:38 Pulse Ox 98 04/08/18 10:38 - Medical History PMH: Arthritis, Depression, Diabetes, Gastritis, HTN, Hypercholesterolemia Denies: Hepatitis, HIV, Chronic Kidney Disease, Seizures, Sexually Transmitted Disease Other PMH: glaucoma - Family History Family History: States: Hypertension - Home Medications Home Medications: Ambulatory Orders Medication Instructions Recorded Atorvastatin [Lipitor] 20 mg PO DAILY 10/20/16 Ergocalciferol (Vitamin D2) 50,000 unit PO TH 10/20/16 [Vitamin D2] Folic Acid 1 mg PO DAILY 10/20/16 [id number] Ethyl Esters 1 GM 2 gm PO BID 10/20/16 [Lovaza] Ondansetron [Zofran] 4 mg PO Q8H #12 tab 10/20/16 Pantoprazole Sodium [Protonix] 40 mg PO DAILY 10/20/16 Pioglitazone [Actos] 30 mg PO DAILY 10/20/16 amLODIPine [Norvasc] 5 mg PO DAILY 10/20/16 buPROPion XL [Wellbutrin XL] 300 mg PO DAILY 10/20/16 busPIRone [Buspar] 5 mg PO BID 10/20/16 traZODone [Desyrel] 50 mg PO HS 10/20/16 Dicyclomine [Bentyl] 10 mg PO QID PRN #20 cap 10/22/16 Cephalexin [cephalexin] 1 tab PO BID #14 cap 11/26/16 Alendronate [Fosamax] 70 mg PO WM 09/20/17 Duloxetine HCl PO DAILY 09/20/17 predniSONE [predniSONE Tab] 5 mg PO 09/20/17 - Allergies Allergies/Adverse Reactions: Allergies Allergy/AdvReac Type Severity Reaction Status Date / Time No Known Allergies Allergy Verified 11/26/16 11:21 Review of Systems ROS Statement: Except As Marked, All Systems Reviewed And Found Negative Constitutional: Negative for: Fever Eyes: Positive for: Pain (behind right eye) Gastrointestinal: Positive for: Nausea, Constipation. Negative for: Vomiting Musculoskeletal: Negative for: Neck Pain Neurological: Positive for: Headache (right sided frontal) Physical Exam - Reviewed Nursing Documentation Reviewed: Yes Vital Signs Reviewed: Yes - Physical Exam Appears: Positive for: Well, Non-toxic, No Acute Distress Head Exam: Positive for: ATRAUMATIC, NORMAL INSPECTION, NORMOCEPHALIC Skin: Positive for: Normal Color, Warm, DRY Eye Exam: Positive for: EOMI, Normal appearance, PERRL ENT: Positive for: Normal ENT Inspection Neck: Positive for: Normal, Painless ROM Cardiovascular/Chest: Positive for: Regular Rate, Rhythm Respiratory: Positive for: Normal Breath Sounds. Negative for: Respiratory Distress Gastrointestinal/Abdominal: Positive for: Normal Exam, Soft Back: Positive for: Normal Inspection Extremity: Positive for: Normal ROM Neurologic/Psych: Positive for: Alert, Oriented - Laboratory Results Result Diagrams: 04/08/18 12:25 04/08/18 12:25 - ECG O2 Sat by Pulse Oximetry: 98 (RA) Pulse Ox Interpretation: Normal Medical Decision Making Medical Decision Making: Time: 11:21 Initial Impression: headache, medication for constipation Initial Plan: --EKG --CMP --Magnesium --Phosphorous --CBC w/ differential --Citrate of Mag 150 ml PO --Sodium chloride 1000 ml IV --Naproxen 500 mg PO --Reglan 10 mg IVP Time: 11:30 -no signs of intercranial deficit, consider CT if pain does not improve with medication Time: 12:50 -2 nurses unable to get IV, patient tolerating fluid, will give PO medication and reevaluate Time: 14:27 -symptoms improved, headache resolved, going home with prescription for a second does of maxitrate, pt instructed to take tomorrow if needed, pt to return if new symptoms develop otherwise follow up with PMD Scribe Attestation: Documented by Lisa Garcia, acting as a scribe for Virginia Condon MD. Provider Scribe Attestation: All medical record entries made by the Scribe were at my direction and personally dictated by me. I have reviewed the chart and agree that the record accurately reflects my personal performance of the history, physical exam, medical decision making, and the department course for this patient. I have also personally directed, reviewed, and agree with the discharge instructions and disposition. Disposition - Disposition Disposition: Routine/Home Disposition Time: 14:27 Condition: IMPROVED Forms: [email or web address] (Italian)
--- NOTE | 2018-04-08 16:54 | CARD ---
APPROVED REPORT Date of service: 04/08/2018 EKG Measurement Heart [id number] <Conclusion> Sinus rhythm with marked sinus arrhythmia with occasional premature ventricular complexes Otherwise normal ECG
[2018-04-08] MEDS ORDERED: Naproxen 500 MG TAB PO SCH (21:00)
== END 2018-04-08 14:40 | disposition home or self-care (01) ==
LOC: H.ER 10:34
DX: R51 Headache (principal); K59.00 Constipation, unspecified; I10 Essential (primary) hypertension; Z79.899 Other long term (current) drug therapy; I49.3 Ventricular premature depolarization